=== PATIENT | male | born 1980 | race Caucasian/White ===

== ENCOUNTER 2017-03-03 12:50 | Emergency (ER) | payer OTHER ==
[~2017-03-03] VITALS: Ht 170.2 cm; Wt 100.0 kg
[2017-03-03 12:52] VITALS: BP 153/93; PULSE 68; RESP 16; O2SAT 98
[2017-03-03] MEDS ORDERED: TdaP Vaccine 0.5 mL Inj IM ONE (14:40)
--- NOTE | 2017-03-03 16:53 | ED.REPORT ---
HPI-General Illness Date of Service Mar 03, 2017 ED Provider: Alex Schulz PA-C Amrit is otherwise healthy 36-year-old male presents with chief complaint laceration. Patient reports cutting his left pinky finger with a knife at work. Denies numbness or weakness. He is unsure of his tetanus status. Denies comorbidities such as diabetes, HIV or immunosuppressive drugs. Nursing Notes Stated Complaint: LACERATION ON FINGER/L AND I Chief Complaint: Laceration Nursing Notes Reviewed: Yes Allergies: Coded Allergies: Sulfa (Sulfonamide Antibiotics) (Verified Allergy, Severe, Rash, 05/12/14) General Time Seen by MD: 14:38 Chief Complaint Laceration Past Medical History Past Medical History Notes: Denies Review of Systems Negative unless stated otherwise in history of present illness Physical Exam General: Well appearing, well developed, well nourished, no acute distress. Left hand: 1 cm laceration on the ulnar aspect of the pinky finger over the proximal phalanx. Base is well visualized and no foreign bodies are noted. There is no obvious involvement of bone or tendon. Sensation light touch intact on both the ulnar and radial aspect of the distal phalanx. Brisk capillary refill is intact. Strength and range of motion at the MCP PIP and DIP joint. Radial pulse 2+. Hand is otherwise normal to inspection. Head: Atraumatic, normocephalic. Eyes: No scleral icterus or injection. No discharge. Vision grossly intact. ENT: Voice clear, hearing grossly intact. Respiratory: No respiratory distress, no increased work of breathing. Speaks in complete sentences. Skin: Warm and dry. Neurological: Grossly nonfocal. Psychological: alert and oriented. Speech appropriate, linear and logical. Behavior appropriate. Vital Signs Vital Signs Date Time Temp Pulse Resp B/P Pulse Ox O2 Delivery O2 Flow Rate FiO2 03/03/17 17:48 70 16 140/79 97 Room Air 03/03/17 12:52 36.6 68 16 153/93 98 Room Air Elevated blood pressure Procedures Laceration Management Procedure Performed by: Allied health pract Consent / Setup / Site Prep: Consent from patient, Hand hygiene observed, Stand sterile technique Wound Length: 1 cm Local Anesthesia: Bupivacaine 0.5%, 4cc, 27g needle Digital Block: Yes Digit Involved: Little finger left Wound Preparation: Hibiclens - Chlorhexidine, Normal saline Debridement: None Foreign Body Explore / Removal: Explored for foreign body Repair Skin: Nylon (5-0) # Sutures - Skin: 3 Closure Layers: 1 Suture Technique: Simple Post-Procedure / Complications: Antibiotic oint applied, Dressing applied, No complications, Condition improved, Tolerated procedure well, Patient stable Re-Eval/Medical Decision Med Decision/Clinical Course Otherwise healthy 36-year-old male reports cutting his left hand small finger with a kitchen knife. Unsure of last tetanus. Denies comorbidities. Denies numbness or weakness. Physical examination reveals a 1 Center laceration on the ulnar aspect of the left small finger. Range of motion, strength sensation and circulation are intact. Finger is anesthetized, cleansed and sutured according procedure note above. I do not see indication for antibiotics as the wound is clean and the patient is healthy. Tetanus booster provided. Dressed with antibiotic ointment and gauze. Advised regarding wound care, primary care follow-up, emergency return precautions. Patient verbalizes understanding of and content plan. Discharge & Departure Primary Impression: Finger laceration Encounter type: initial encounter Qualified Code: S61.219A - Laceration without foreign body of unspecified finger without damage to nail, initial encounter Disposition: Home Discharge Condition All VS Reviewed: Yes Condition: Stable Patient Instructions: Finger Laceration (ED) Additional Instructions: Evaluation in the emergency department for a laceration. This appears to be a clean wound, with no damage to the joint capsule or tendons. I see no indication for antibiotics at this time. Updated your tetanus shot. We have cleaned, sutured and dressed the wound with antibiotic ointment and gauze. Please leave this dressing on and dry for the next 24 hours. After that you can remove the dressing, clean with soap and water and then reapply antibiotic ointment and gauze or Band-Aid. Please do not submerge the wound as in washing dishes, swimming or soaking in a tub until you have the sutures removed. The pain is best treated with 400 mg of ibuprofen (Advil, Motrin) every 6 hours , or 1000 mg of acetaminophen (Tylenol) every 6 hours. These drugs can be taken at the same time for more severe pain. I have provided you with a referral for primary care provider. Be vigilant for signs of infection. While a small amount of redness, tenderness and clear or pink drainage is normal, any increasing pain, redness, swelling or the appearance of pus suggests infection. More severe infection as suggested by symptoms such as fever, chills, feeling ill, racing heart. Please return to emergency Department if you notice signs of infection. Follow-up with your primary care provider or return to the emergency department in 7 days for suture removal. Referrals: [facility] Provider for APC: Mike Khan MD, Seth PA-C Mar 03, 2017 16:53
[2017-03-03 17:48] VITALS: BP 140/79; PULSE 70; RESP 16; O2SAT 97
== END 2017-03-03 17:39 | disposition home or self-care (01) ==
LOC: SED 12:50
DX: S61.217A Laceration without foreign body of left little finger without damage to nail, initial encounter (principal); W26.0XXA Contact with knife, initial encounter; Y92.511 Restaurant or cafe as the place of occurrence of the external cause; Y93.G1 Activity, food preparation and clean up; Y99.0 Civilian activity done for income or pay; Z23 Encounter for immunization; Z88.2 Allergy status to sulfonamides